=== PATIENT | male | born 1965 ===

== ENCOUNTER 2021-06-06 01:46 | Outpatient (CLI) | payer OTHER, SELFPAY ==
--- NOTE | 2021-06-06 13:06 | DI.RAD_ITS ---
Exam(s) XR LUMBAR SPINE AP, LAT EXAM: XR LUMBAR SPINE AP, LAT CLINICAL HISTORY: DDD, M51.36, VES #[id number] TECHNIQUE: COMPARISON: No exams were available for comparison FINDINGS: Three views were obtained. There is mild narrowing of intervertebral disc spaces at 3 4 and L4-5. T here are moderate hypertrophic degenerative changes of the endplates and facet joints at L3-4 L4-5 L5 -S1. There is no evidence of acute fracture. There is no spondylolysis or spondylolisthesis. IMPRESSION: Degenerative changes as described above. RADIATION DOSE DELIVERED: Total DLP
== END 2021-06-06 02:06 ==
PROVIDERS: Visit Provider Chiropractor
DX: M51.36 Other intervertebral disc degeneration, lumbar region (principal); M47.817 Spondylosis without myelopathy or radiculopathy, lumbosacral region
CPT/HCPCS: 72100